=== PATIENT | female | born 1950 | race Two or more races ===

== ENCOUNTER 2018-06-24 21:36 | Inpatient (IN) | payer MEDICAID, OTHER ==
[~2018-06-24] VITALS: Ht 154.9 cm; Wt 59.9 kg
[2018-06-24] MEDS ORDERED: ONDANSETRON HCL 4MG/2ML INJ IV STA (22:21)
[2018-06-24 23:44] LABS: BASOPHILS % 0.7 % (0.0-2.0); EOSINOPHILS % 1.4 % (0.0-5.0); HEMATOCRIT. 40.9 % (36.0-48.0); HEMOGLOBIN. 13.8 g/dL (12.0-16.0); LYMPHOCYTES % 39.5 % (20.0-50.0); MEAN CORPUSCULAR HEMOGLOBIN 30.7 pg (28.0-32.0); MEAN CORPUSCULAR VOLUME 90.9 fL (81.0-99.0); MEAN PLATELET VOLUME 7.7 fl (7.4-10.4); MONOCYTES % 4.6 % (2.0-8.0); NEUTROPHILS % 53.8 % (40.0-76.0); PLATELET 265 x1000/uL (130-400); RED CELL DISTRIBUTION WIDTH 12.3 % (11.6-14.6)
[2018-06-24 23:45] LABS: CHLORIDE 107 mEq/L (98-107)
[2018-06-24 23:50] LABS: ETHANOL BLOOD < 10 mg/dL
[2018-06-24 23:56] LABS: PARTIAL THROMBOPLASTIN TIME 28.2 sec (23.4-31.0)
[2018-06-25 00:12] LABS: CLARITY URINE CLOUDY (CLEAR); COLOR URINE YELLOW (YELLOW); KETONES URINE TRACE (NEGATIVE); LEUKOCYTE ESTERASE URINE 1+ (NEGATIVE); NITRITE URINE NEGATIVE (NEGATIVE); OCCULT BLOOD URINE TRACE (NEGATIVE); PROTEIN URINE NEGATIVE (NEGATIVE); SPECIFIC GRAVITY URINE 1.037 (1.005-1.030)
[2018-06-25 00:34] LABS: *BENZODIAZEPINES SCREEN URINE NEGATIVE (NEGATIVE); *COCAINE SCREEN URINE NEGATIVE (NEGATIVE)
[2018-06-25 00:35] LABS: *AMPHETAMINES SCREEN URINE NEGATIVE (NEGATIVE); *BARBITURATES SCREEN URINE NEGATIVE (NEGATIVE); CANNABINOID URINE SCREEN NEGATIVE (NEGATIVE); OPIATES URINE SCREEN NEGATIVE (NEGATIVE); PHENCYCLIDINE URINE SCREEN NEGATIVE (NEGATIVE)
[2018-06-25 00:36] LABS: METHADONE URINE SCREEN PRESUMTIVE POSITIVE (NEGATIVE)
[2018-06-25] MEDS ORDERED: CEFTRIAXONE 1 G PREMIX 50 ML IV ONE (01:00)
[2018-06-25 02:54] VITALS: BP 137/59
[2018-06-25 02:57] VITALS: BP 137/59
[2018-06-25] MEDS ORDERED: METH-611 MT (03:28)
[2018-06-25 04:00] VITALS: BP 110/48
[2018-06-25] MEDS ORDERED: HYDROCODONE/ACETAMINOPHEN 10/325MG TABLET PO PRN (05:15)
[2018-06-25] MEDS ORDERED: CLONIDINE 0.1MG TABLET PO PRN (05:15)
[2018-06-25] MEDS ORDERED: HYDROMORPHONE HCL/PF 2MG/ML CPJ IV PRN (05:15)
[2018-06-25] MEDS ORDERED: MAGNESIUM/ALUMINUM HYDROXIDE/SIMETHICONE 30ML UDC PO PRN (05:15)
[2018-06-25] MEDS ORDERED: DIPHENHYDRAMINE 50MG/ML VIAL IV PRN (05:15)
[2018-06-25] MEDS ORDERED: ONDANSETRON HCL 4MG/2ML INJ IV PRN (05:15)
[2018-06-25] MEDS ORDERED: LORAZEPAM 2MG/ML CPJ IV PRN (05:15)
[2018-06-25] MEDS ORDERED: DOCUSATE SODIUM 100MG CAPSULE PO PRN (05:15)
[2018-06-25] MEDS ORDERED: ACETAMINOPHEN 325MG TABLET PO PRN (05:15)
[2018-06-25] MEDS ORDERED: GUAIFENESIN 200MG/10ML SUGAR FREE UDC PO PRN (05:15)
[2018-06-25] MEDS ORDERED: HYDRALAZINE 20MG/ML VIAL IV PRN (05:15)
[2018-06-25] MEDS ORDERED: CEFTRIAXONE 1 G PREMIX 50 ML IV SCH (05:15)
[2018-06-25] MEDS ORDERED: IPRATROPIUM/ALBUTEROL 0.5-3(2.5)MG/3ML NEB INH PRN (05:15)
[2018-06-25] MEDS ORDERED: INFLUENZA VIRUS VACCINE(AFLURIA) 0.5ML SYR IM ONE (06:00)
[2018-06-25] MEDS ORDERED: SODIUM CHLORIDE 0.9% INJ 3ML FLUSH IVF SCH (06:00)
[2018-06-25 08:00] VITALS: BP 105/36
[2018-06-25] MEDS ORDERED: ENOXAPARIN 40MG/0.4ML SYR SUBCUT SCH (09:00)
[2018-06-25] MEDS ORDERED: ASPIRIN 81MG EC TABLET PO SCH (09:00)
[2018-06-25 09:41] LABS: CREATINE KINASE 61 IU/L (26-192); CREATINE KINASE MB FRACTION 1.5 ng/mL (0.5-3.6)
[2018-06-25] MEDS ORDERED: REGADENOSON 0.4 MG/5 ML IV ONE (11:00)
[2018-06-25 12:00] VITALS: BP 115/55
[2018-06-26] MEDS ORDERED: CEFTRIAXONE 1 G PREMIX 50 ML IV SCH (01:30)
== END 2018-06-25 14:00 | disposition left against medical advice (07) | DRG 463 ==
LOC: ER 21:36 → 7WST 06-25 00:57 → EDBEDREQTM 06-25 01:00 → EDBEDREQ 06-25 01:00 → ENRESERV 06-25 01:43 → 7WST 06-25 03:11
PROVIDERS: ADMIT Internal Medicine; ATTEND Internal Medicine
DX: N39.0 Urinary tract infection, site not specified (principal); F11.20 Opioid dependence, uncomplicated; I42.9 Cardiomyopathy, unspecified; I50.9 Heart failure, unspecified; R07.9 Chest pain, unspecified; I25.10 Atherosclerotic heart disease of native coronary artery without angina pectoris; D64.9 Anemia, unspecified; Z53.21 Procedure and treatment not carried out due to patient leaving prior to being seen by health care provider; E66.9 Obesity, unspecified; F17.210 Nicotine dependence, cigarettes, uncomplicated; G89.29 Other chronic pain; M54.30 Sciatica, unspecified side; Z82.49 Family history of ischemic heart disease and other diseases of the circulatory system; Z95.810 Presence of automatic (implantable) cardiac defibrillator; Z68.24 Body mass index [BMI] 24.0-24.9, adult; Z71.6 Tobacco abuse counseling
CPT/HCPCS: 36415; 71045; 80305; 82550; 82553; 83880; 84484; 90686; 93005; 96374; 96375; 99285; 99406; J0696; J1650; J2405